=== PATIENT | female | born 1970 | race Caucasian/White ===

== ENCOUNTER 2017-04-15 21:48 | Emergency (ER) | payer OTHER ==
[~2017-04-15] VITALS: Ht 167.6 cm; Wt 86.3 kg
[~2017-04-15 21:48] MED LIST: ASPI81TA21 PO; BUSP15TA70 PO; CLON1TAB3 PO; EFFSR150 PO; PARO1TAB29 PO
[2017-04-15 22:00] VITALS: TEMP 36.9; Ht 167.6 cm; Wt 86.3 kg
[2017-04-15 22:22] VITALS: O2SAT 98
[2017-04-15] MEDS ORDERED: ESCI1TAB10 PO (22:39)
[2017-04-15 22:42] LABS: HEMATOCRIT 44.7 % (37-47); MEAN CELL VOLUME 86.3 fL (80-100); MEAN CORPUSCULAR HEMOGLOBIN 30.7 pg (25-34); MEAN CORPUSCULAR HGB CONC 35.6 g/dl (32-36); MEAN PLATELET VOLUME 11.5 fL (7.4-10.4); PLATELET COUNT 272 K/uL (130-400); RED BLOOD COUNT 5.18 M/uL (4.2-5.4)
--- NOTE | 2017-04-15 22:49 | DIAGNOSTIC IMAGING REPORT ---
CHEST ONE VIEW PORTABLE CLINICAL HISTORY: chest tightness dyspnea COMPARISON STUDY: 09/09/2013 FINDINGS: Mild chronic bibasilar interstitial change. No evidence for cardiac enlargement. Mid and upper lungs are clear. IMPRESSION: Chronic change. No acute process. The above report was generated using voice recognition software. It may contain grammatical, syntax or spelling errors. Electronically signed by: Arturo Maldonado M.D. 04/15/2017 10:47 PM Dictated Date/Time: 04/15/2017 10:47 PM
[2017-04-15 22:51] LABS: BUN/CREATININE RATIO 10.9 (10-20); CALCIUM 9.4 mg/dl (8.5-10.1); CREATININE 0.82 mg/dl (0.60-1.20); POTASSIUM 4.1 mmol/L (3.5-5.1)
[2017-04-15 22:53] LABS: PARTIAL THROMBOPLASTIN RATIO 1.1; PROTHROMBIN TIME (PATIENT) 10.7 SECONDS (9.0-12.0)
[2017-04-15 22:56] LABS: ALB/GLOB RATIO 0.9 (0.9-2); CKMB/CK RATIO 0.8 (0-3.0)
[2017-04-15] MEDS ORDERED: SODIUM CHLORIDE 0.9% 1000ML 1,000 ML IV STA (23:22)
--- NOTE | 2017-04-15 23:28 | EMERGENCY ROOM VISIT NOTE ---
History Report prepared by Diana: Rojas Santos Under the Supervision of: Dr. Evette Alonzo D.O. First contact with patient: 23:12 Chief Complaint: HYPERTENSION Stated Complaint: HIGH BLOOD PRESSURE, HEADACHE, NAUSEA History of Present Illness The patient is a 47 year old female who presents to the Emergency Room with complaints of persistent fatigue that began four days prior to arrival. The patient also complains of intermittent chest pains. She describes the chest pain as a "pressure" and notes that the pains radiate into the left arm. Her pain is improved by sitting down and trying to relax. She does admit to a history of anxiety. The patient has also been experiencing intermittent headaches and blurry vision. She describes her blurry vision as difficulty focusing on the television. She has also been experiencing nausea and increasing urinary frequency. She has no history of high blood pressure, but has noticed that he blood pressure has been elevated over the past four days. The patient is a frequent smoker. She is currently on depression and anxiety medication, as well as a baby Aspirin as a blood thinner. The patient denies fevers, shortness of breath, vomiting, diarrhea, pain with urination, and melena. Source of History: patient Onset: 4 days SOLUTIONS ARCHITECT Position: other (Global) Quality: other (Fatigue) Timing: other (Persistent) Modifying Factors (Relieving): rest Associated Symptoms: + headache, + chest pain, + nausea, + urinary symptoms , No vomiting Review of Systems See HPI for pertinent positives & negatives. A total of 10 systems reviewed and were otherwise negative. Past Medical & Surgical Surgical Problems: (1) H/O section (2) H/O knee surgery (3) H/O tubal ligation Family History Heart disease Hypertension Social History Smoking Status: Current Every Day Smoker Marital Status: in relationship Housing Status: lives with significant other Occupation Status: unemployed Current/Historical Medications Scheduled Amlodipine Besylate (Norvasc), 1 TAB PO DAILY Aspirin Enteric Coated (Ecotrin Or Generic), 81 MG PO DAILY Buspirone Hcl (Buspar), 15 MG PO QAM Clonidine (Catapres-Tts), 1 PATCH TD WK Escitalopram Oxalate (Lexapro), 20 MG PO DAILY Allergies Coded Allergies: Catnip (Verified Allergy, Intermediate, HIVES, 04/16/17) [place] Oil (Verified Allergy, Intermediate, ORANGE PEEL-RASH, 04/16/17) Physical Exam Vital Signs Date Time Temp Pulse Resp B/P (MAP) Pulse Ox O2 Delivery O2 Flow Rate FiO2 04/16/17 02:32 81 18 167/108 95 Room Air 04/16/17 02:11 78 04/16/17 02:01 80 12 177/99 95 Room Air 04/16/17 01:45 75 18 167/93 95 Room Air 04/16/17 01:16 77 16 162/109 95 Room Air 04/16/17 00:36 79 16 164/99 96 Room Air 04/16/17 00:06 79 16 152/102 97 Room Air 04/15/17 23:36 71 20 191/104 95 Room Air 04/15/17 22:48 72 12 93 04/15/17 22:39 76 04/15/17 22:30 166/97 04/15/17 22:24 98 Room Air 04/15/17 22:22 98 Room Air 04/15/17 22:21 144/99 04/15/17 22:00 36.9 82 20 184/114 92 Room Air Physical Exam GENERAL: alert, well appearing, well nourished, no distress, non-toxic EYE EXAM: normal conjunctiva, PERRL and EOM's grossly intact OROPHARYNX: no exudate, no erythema, lips, buccal mucosa, and tongue normal and mucous membranes are dry. NECK: supple, no nuchal rigidity, no adenopathy, non-tender LUNGS: Clear to auscultation. Normal chest wall mechanics HEART: no murmurs, S1 normal and S2 normal ABDOMEN: abdomen soft, non-tender, normo-active bowel sounds, no masses, no rebound or guarding. BACK: Back is symmetrical on inspection and there is no deformity, no midline tenderness, no CVA tenderness. SKIN: no rashes and no bruising UPPER EXTREMITIES: upper extremities are grossly normal. LOWER EXTREMITIES: No pitting edema. NEURO EXAM: Normal sensorium, cranial nerves II-XII intact, normal speech, no weakness of arms, no weakness of legs. Medical Decision & Procedures ER Provider Diagnostic Interpretation: Radiology results have been interpreted by the radiologist and reviewed by me. CHEST ONE VIEW PORTABLE CLINICAL HISTORY: chest tightness dyspnea COMPARISON STUDY: 09/09/2013 FINDINGS: Mild chronic bibasilar interstitial change. No evidence for cardiac enlargement. Mid and upper lungs are clear. IMPRESSION: Chronic change. No acute process. The above report was generated using voice recognition software. It may contain grammatical, syntax or spelling errors. Electronically signed by: Arturo Maldonado M.D. 04/15/2017 10:47 PM Dictated Date/Time: 04/15/2017 10:[address] HEAD: No intracranial hemorrhage or mass effect. Radiologist: Ernie Ramirez M.D. Laboratory Results 04/15/17 22:20 04/15/17 22:20 Test 04/15/17 22:20 04/15/17 22:27 04/15/17 23:32 04/16/17 01:30 Red Blood Count 5.18 M/uL (4.2-5.4) Mean Corpuscular Volume 86.3 fL (80-100) Mean Corpuscular Hemoglobin 30.7 pg (25-34) Mean Corpuscular Hemoglobin Concent 35.6 g/dl (32-36) RDW Standard Deviation 41.6 fL (36.4-46.3) RDW Coefficient of Variation 13.1 % (11.5-14.5) Mean Platelet Volume 11.5 fL (7.4-10.4) Prothrombin Time 10.7 SECONDS (9.0-12.0) Prothromb Time International Ratio 1.0 (0.9-1.1) Activated Partial Thromboplast Time 28.1 SECONDS (21.0-31.0) Partial Thromboplastin Ratio 1.1 Anion Gap 6.0 mmol/L (3-11) Est Creatinine Clear Calc Drug Dose 91.8 ml/min Estimated GFR () 97.4 Estimated GFR (Non- 84.0 BUN/Creatinine Ratio 10.9 (10-20) Calcium Level 9.4 mg/dl (8.5-10.1) Total Bilirubin 0.4 mg/dl (0.2-1) Aspartate Amino Transf (AST/SGOT) 21 U/L (15-37) Alanine Aminotransferase (ALT/SGPT) 35 U/L (12-78) Alkaline Phosphatase 94 U/L (45-117) Total Creatine Kinase 143 U/L (26-192) Creatine Kinase MB 1.2 ng/ml (0.5-3.6) Creatine Kinase MB Ratio 0.8 (0-3.0) Total Protein 8.0 gm/dl (6.4-8.2) Albumin 3.9 gm/dl (3.4-5.0) Globulin 4.1 gm/dl (2.5-4.0) Albumin/Globulin Ratio 0.9 (0.9-2) Bedside Troponin I < 0.030 ng/ml (0-0.045) Urine Color YELLOW Urine Appearance CLEAR (CLEAR) Urine pH 6.5 (4.5-7.5) Urine Specific [place] 1.009 (1.000-1.030) Urine Protein NEG (NEG) Urine Glucose (UA) NEG (NEG) Urine Ketones NEG (NEG) Urine Occult Blood NEG (NEG) Urine Nitrite NEG (NEG) Urine Bilirubin NEG (NEG) Urine Urobilinogen NEG (NEG) Urine Leukocyte Esterase NEG (NEG) Troponin I < 0.015 ng/ml (0-0.045) Laboratory results per my review. Medications Administered Medications (Trade) Dose Ordered Sig/Reji Route Start Time Stop Time Status Last Admin Dose Admin Amlodipine Besylate (Norvasc Tab) 5 mg NOW ONCE PO 04/15/17 23:30 04/15/17 23:31 DC 04/15/17 23:34 5 MG Sodium Chloride 1,000 ml @ 999 mls/hr Q1H1M STAT IV 04/15/17 23:22 04/16/17 00:22 DC 04/15/17 23:36 999 MLS/HR Ketorolac Tromethamine (Toradol Inj) 15 mg NOW STAT IV 04/16/17 00:49 04/16/17 00:51 DC 04/16/17 01:07 15 MG ECG Indication: chest pain Rate (beats per minute): 66 Rhythm: normal sinus Findings: no acute ischemic change, no ectopy, other (Normal axis, normal intervals) ED Course 2314: The patient was evaluated in room C8. A complete history and physical exam was performed. 2322: Ordered Sodium Chloride 1000 mL @ 999 mL/hr IV. 2330: Ordered Amlodipine Besylate 5 mg PO. 0044: I reevaluated the patient at this time. Her headache has improved but the chest pain is still present. 0049: Ordered Toradol 15 mg IV. 0228: Upon reevaluation, the patient is feeling better. I discussed the findings and the treatment plan with the patient. She verbalizes agreement and understanding. The patient was discharged home. Medical Decision Differential diagnoses includes but is not limited to acute coronary syndrome, myocardial infarction, pericarditis, pulmonary embolus, aortic dissection, pneumonia, pneumothorax, musculoskeletal, shingles, esophageal. HEART score: 2 Pt risks include smoking, likely underlying HTN. Discussed with pt tobacco cessation, f/u with PCP regarding htn. Given symptoms, pt started on meds here and BP improved slightly. Discussed concerning levels of htn and how often to check at home. I do feel there is some underlying component of anxiety. No sx during exertion. WU and CP not concurrent and not associated with exertion. Neuro exam at bedside otw normal and nonfocal. Sx improved with meds in the ER. Doubt vascular etiology including dissection/aaa. Doubt occult infectious etiology, doubt tamponade, effusion, pneumothorax. No evidence of hypertensive emergency. Medication Reconcilliation Current Medication List: was personally reviewed by me Blood Pressure Screening Patient's blood pressure: Elevated blood pressure Blood pressure disposition: Referred to PCP Impression Primary Impression: Hypertension Additional Impressions: Headache Chest pain Tobacco abuse Anxiety Scribe Attestation The scribe's documentation has been prepared under my direction and personally reviewed by me in its entirety. I confirm that the note above accurately reflects all work, treatment, procedures, and medical decision making performed by me. Departure Information Dispostion Home / Self-Care Prescriptions Amlodipine Besylate (NORVASC) 5 Mg Tab 1 TAB PO DAILY for 30 Days, #30 TAB Prov: Evette Alonzo DO 04/16/17 Referrals No Doctor, Assigned (PCP) Patient Instructions My [facility] Additional Instructions Please do not check your blood pressure more than once a day. Please consider quitting smoking. Please take the blood pressure medication as prescribed. Please drink more water. Please follow up with your family doctor to recheck your blood pressure and discuss treatment. If you develop any recurrent headaches, recurrent chest pain, vision changes, dizziness, vomiting, numbness or tingling, or you have any other new concerns, please return the emergency room. Problem Qualifiers Primary Impression: Hypertension Hypertension type: essential hypertension Qualified Codes: I10 - Essential ( primary) hypertension Additional Impressions: Headache Headache type: unspecified Headache chronicity pattern: episodic headache Intractability: not intractable Qualified Codes: R51 - Headache Chest pain Chest pain type: unspecified Qualified Codes: R07.9 - Chest pain, unspecified
[2017-04-15] MEDS ORDERED: AMLODIPINE BESYLATE 5 MG TAB PO ONE (23:30)
[2017-04-15 23:48] LABS: MANUAL MICROSCOPIC REQUIRED? NO; REVIEW REQ? NO; URINE APPEARANCE CLEAR (CLEAR); URINE BILIRUBIN NEG (NEG); URINE COLOR YELLOW; URINE NITRITE NEG (NEG); URINE PH 6.5 (4.5-7.5); URINE SPECIFIC GRAVITY 1.009 (1.000-1.030); UROBILINOGEN NEG (NEG); ZZUR CULT IF INDIC CLEAN CATCH NO
[2017-04-16] MEDS ORDERED: KETOROLAC TROMETHAMINE 30 MG/ML VIAL IV STA (00:49)
[2017-04-16 02:32] VITALS: BP 167/108; PULSE 81; O2SAT 95
[2017-04-16] MEDS ORDERED: AMLO5TAB2 PO (02:37)
--- NOTE | 2017-04-16 06:40 | DIAGNOSTIC IMAGING REPORT ---
CT HEAD WITHOUT CONTRAST (CT) CLINICAL HISTORY: Hypertension, headache, visual changes. COMPARISON STUDY: No previous studies for comparison. TECHNIQUE: Axial CT of the brain is performed from the vertex to the skull base. IV contrast was not administered for this examination. A dose lowering technique was utilized adhering to the principles of ALARA. CT DOSE: 537.48 mGy.cm FINDINGS: No intra or extra-axial mass lesions are visualized. There is no CT evidence of acute cortical infarction. There is no evidence of midline shift. There is no acute hemorrhage. No calvarial fractures are visualized. There is no evidence of pathologic ventricular dilatation. There is no evidence of acute sinusitis IMPRESSION: No acute intracranial findings Electronically signed by: Gene Valera M.D. 04/16/2017 6:38 AM Dictated Date/Time: 04/16/2017 6:38 AM
[2017-04-16] MEDS ORDERED: CLON0.1D7 TD (20:03)
== END 2017-04-16 02:46 | disposition home or self-care (01) ==
LOC: C.EDB 21:49 → C.EDC 04-16 02:46
DX: I10 Essential (primary) hypertension (principal); R51 Headache; R07.9 Chest pain, unspecified; F41.9 Anxiety disorder, unspecified; F17.210 Nicotine dependence, cigarettes, uncomplicated; F32.9 Major depressive disorder, single episode, unspecified; Z79.82 Long term (current) use of aspirin; Z98.51 Tubal ligation status; Z82.49 Family history of ischemic heart disease and other diseases of the circulatory system

== ENCOUNTER 2017-04-16 18:14 | Emergency (ER) | payer OTHER ==
[~2017-04-16] VITALS: Ht 167.6 cm; Wt 86.5 kg
[~2017-04-16 18:14] MED LIST changes: +AMLO5TAB2 PO; -EFFSR150 PO; +ESCI1TAB10 PO; -PARO1TAB29 PO
[2017-04-16 18:18] VITALS: Ht 167.6 cm; Wt 86.5 kg
[2017-04-16] MEDS ORDERED: LISINOPRIL 10 MG TAB PO STA (18:32)
--- NOTE | 2017-04-16 18:32 | EMERGENCY ROOM VISIT NOTE ---
History Report prepared by Diana: Reina Pandey Under the Supervision of: Dr. Victorino Banuelos M.D. First contact with patient: 18:22 Chief Complaint: MENTAL HEALTH EVALUATION Stated Complaint: ANXIETY,BLOOD PRESSURE History of Present Illness The patient is a 47 year old female who presents to the Emergency Room with complaints of constant anxiety beginning yesterday. The patient states that she was seen here last night in the ED and had high blood pressure. She reports that she is on blood pressure her medication and took it this morning but has been feeling extremely anxious since last night. She notes that she is afraid that she is going to and her high blood pressure makes her very anxious. The patient states that she has had anxiety for 25 years and it has been since yesterday when she discovered her blood pressure was high. She complains of chest pain, shakiness, and racing thoughts. She denies anything making her chest pain worse. Pt denies any suicidal and homicidal ideation. Source of History: patient Onset: yesterday Position: other Quality: other (anxiety) Timing: constant Modifying Factors (Worsening): other (high blood pressure) Associated Symptoms: + chest pain Note: She complains of shakiness and racing thoughts. Denies suicidal ideation and homicidal ideation. Review of Systems See HPI for pertinent positives & negatives. A total of 10 systems reviewed and were otherwise negative. Past Medical & Surgical Surgical Problems: (1) H/O section (2) H/O knee surgery (3) H/O tubal ligation Family History Heart disease Hypertension Social History Smoking Status: Current Every Day Smoker Marital Status: in relationship Housing Status: lives with significant other Occupation Status: unemployed Current/Historical Medications Scheduled Amlodipine Besylate (Norvasc), 1 TAB PO DAILY Aspirin Enteric Coated (Ecotrin Or Generic), 81 MG PO DAILY Buspirone Hcl (Buspar), 15 MG PO QAM Clonidine (Catapres-Tts), 1 PATCH TD WK Escitalopram Oxalate (Lexapro), 20 MG PO DAILY Allergies Coded Allergies: Catnip (Verified Allergy, Intermediate, HIVES, 04/16/17) [place] Oil (Verified Allergy, Intermediate, ORANGE PEEL-RASH, 04/16/17) Physical Exam Vital Signs Date Time Temp Pulse Resp B/P (MAP) Pulse Ox O2 Delivery O2 Flow Rate FiO2 04/16/17 20:31 36.9 90 16 129/89 95 04/16/17 20:11 129/89 04/16/17 20:09 90 16 95 04/16/17 20:04 81 19 95 04/16/17 20:01 165/80 04/16/17 19:59 92 13 95 04/16/17 19:54 85 16 94 04/16/17 19:49 92 31 94 04/16/17 19:44 96 12 96 04/16/17 19:39 103 22 96 04/16/17 19:34 84 04/16/17 19:34 84 17 93 04/16/17 19:30 146/99 04/16/17 19:06 96 Room Air 04/16/17 19:05 83 20 140/86 92 Room Air 04/16/17 18:18 36.9 108 20 163/104 97 Room Air Physical Exam GENERAL: Patient is a healthy-appearing well-nourished female HEAD: Normocephalic atraumatic EYES: Ocular movements intact pupils equal and react to light OROPHARYNX mucous membranes are moist no exudates present no erythema or edema present NECK: Supple no nuchal rigidity CHEST: Good equal expansion LUNGS: Clear and equal to auscultation CARDIAC: Normal S1 and S2 ABDOMEN: Soft nontender no guarding BACK: No CVA tenderness EXTREMITIES: No pain upon palpation normal muscle strength in all groups no clubbing cyanosis or edema NEURO: Patient is following commands and answering questions appropriately. Alert and oriented x3 Cranial Nerves 2-12 grossly intact PSYCH: Anxious appearing. Denies suicidal and homicidal ideation. Medical Decision & Procedures ER Provider Diagnostic Interpretation: X-ray results as stated below per interpretation by me and the radiologist: CHEST ONE VIEW PORTABLE FINDINGS: The bones soft tissues and hemidiaphragms are normal. The cardiomediastinal silhouette is normal. The lungs are clear. The pulmonary vasculature is normal. Mild chronic interstitial change left base IMPRESSION: No acute process. Chronic changes as noted. The above report was generated using voice recognition software. It may contain grammatical, syntax or spelling errors. Electronically signed by: Arturo Maldonado M.D. 04/16/2017 8:05 PM Dictated Date/Time: 04/16/2017 8:05 PM Laboratory Results 04/16/17 18:55 Red Blood Count 4.91, Mean Corpuscular Volume 87.0, Mean Corpuscular Hemoglobin 29.9, Mean Corpuscular Hemoglobin Concent 34.4, Mean Platelet Volume 11.3, Neutrophils (%) (Auto) 64.6, Lymphocytes (%) (Auto) 30.0, Monocytes (%) (Auto) 4.4, Eosinophils (%) (Auto) 0.4, Basophils (%) (Auto) 0.3, Neutrophils # (Auto) 7.21, Lymphocytes # (Auto) 3.35, Monocytes # (Auto) 0.49, Eosinophils # (Auto) 0.05, Basophils # (Auto) 0.03 04/16/17 18:55 Test 04/16/17 18:50 04/16/17 18:55 04/16/17 19:00 04/16/17 19:02 Urine Color YELLOW Urine Appearance CLEAR (CLEAR) Urine pH 6.5 (4.5-7.5) Urine Specific [place] 1.008 (1.000-1.030) Urine Protein NEG (NEG) Urine Glucose (UA) NEG (NEG) Urine Ketones NEG (NEG) Urine Occult Blood NEG (NEG) Urine Nitrite NEG (NEG) Urine Bilirubin NEG (NEG) Urine Urobilinogen NEG (NEG) Urine Leukocyte Esterase NEG (NEG) Urine Opiates Screen NEG (NEG) Urine Methadone, Qualitative NEG (NEG) Urine Barbiturates NEG (NEG) Urine Phencyclidine (PCP) Level NEG (NEG) Ur Amphetamine/Methamphetamine NEG (NEG) MDMA (Ecstasy) Screen NEG (NEG) Urine Benzodiazepines Screen NEG (NEG) Urine Cocaine Metabolite NEG (NEG) Urine Marijuana (THC) NEG (NEG) White Blood Count 11.16 K/uL (4.8-10.8) Red Blood Count 4.91 M/uL (4.2-5.4) Hemoglobin 14.7 g/dL (12.0-16.0) Hematocrit 42.7 % (37-47) Mean Corpuscular Volume 87.0 fL (80-100) Mean Corpuscular Hemoglobin 29.9 pg (25-34) Mean Corpuscular Hemoglobin Concent 34.4 g/dl (32-36) Platelet Count 287 K/uL (130-400) Mean Platelet Volume 11.3 fL (7.4-10.4) Neutrophils (%) (Auto) 64.6 % Lymphocytes (%) (Auto) 30.0 % Monocytes (%) (Auto) 4.4 % Eosinophils (%) (Auto) 0.4 % Basophils (%) (Auto) 0.3 % Neutrophils # (Auto) 7.21 K/uL (1.4-6.5) Lymphocytes # (Auto) 3.35 K/uL (1.2-3.4) Monocytes # (Auto) 0.49 K/uL (0.11-0.59) Eosinophils # (Auto) 0.05 K/uL (0-0.5) Basophils # (Auto) 0.03 K/uL (0-0.2) RDW Standard Deviation 41.9 fL (36.4-46.3) RDW Coefficient of Variation 13.1 % (11.5-14.5) Immature Granulocyte % (Auto) 0.3 % Immature Granulocyte # (Auto) 0.03 K/uL (0.00-0.02) Est Creatinine Clear Calc Drug Dose 103.2 ml/min Estimated GFR () 112.1 Estimated GFR (Non- 96.7 BUN/Creatinine Ratio 11.7 (10-20) Calcium Level 8.7 mg/dl (8.5-10.1) Total Bilirubin 0.4 mg/dl (0.2-1) Direct Bilirubin < 0.1 mg/dl (0-0.2) Aspartate Amino Transf (AST/SGOT) 17 U/L (15-37) Alanine Aminotransferase (ALT/SGPT) 31 U/L (12-78) Alkaline Phosphatase 88 U/L (45-117) Total Creatine Kinase 175 U/L (26-192) Creatine Kinase MB 1.5 ng/ml (0.5-3.6) Creatine Kinase MB Ratio 0.9 (0-3.0) Troponin I < 0.015 ng/ml (0-0.045) Total Protein 7.4 gm/dl (6.4-8.2) Albumin 3.7 gm/dl (3.4-5.0) Lipase 126 U/L (73-393) Thyroid Stimulating Hormone (TSH) 0.671 uIu/ml (0.300-4.500) Ethyl Alcohol mg/dL < 3.0 mg/dl (0-3) Bedside D-Dimer 346 ng/mlFEU (0-450) Bedside Hemoglobin 14.6 g/dl (12.0-16.0) Bedside Hematocrit 43 % (37-47) Bedside Sodium 143 mEq/L (135-144) Bedside Potassium 3.7 mEq/L (3.3-5.0) Bedside Chloride 105 mEq/L (101-112) Bedside Total CO2 26 mEq/l (24-31) Anion Gap 17.0 mmol/L (16-25) Bedside Blood Urea Nitrogen 7 mg/dl (7-18) Bedside Creatinine 0.7 mg/dl (0.6-1.3) Bedside Glucose (other) 101 mg/dl (70-99) Bedside Ionized Calcium ([place]) 1.18 mmol/l (1.12-1.32) Labs reviewed by ED physician. Medications Administered Medications (Trade) Dose Ordered Sig/Reji Route Start Time Stop Time Status Last Admin Dose Admin Lisinopril (Zestril Tab) 10 mg NOW STAT PO 04/16/17 18:32 04/16/17 18:33 DC 04/16/17 19:01 10 MG Nicotine (Nicoderm Cq 21MG Patch) 1 patch NOW STAT TD 04/16/17 18:33 04/16/17 18:34 DC 04/16/17 19:14 1 PATCH Clonidine HCl ([id number]-0 0.2mg/24hr Patch) 1 patch NOW STAT TD 04/16/17 19:19 04/16/17 19:21 DC 04/16/17 20:13 1 PATCH ECG Indication: chest pain Rate (beats per minute): 84 Rhythm: normal sinus Findings: no acute ischemic change, no ectopy ED Course 1821: Past medical records reviewed. The patient was evaluated in room A7. A complete history and physical examination was performed. 1831: Lisinopril 10mg PO, Nicotine 1 patch TD, Nicotine Polacrilex 1 piece MT. 1918: Clonidine HCl 1 patch TD. 2000: I reevaluated and updated the patient. She has a follow up appointment with her PCP tomorrow. 2014: Upon reexamination the patient is doing well. I discussed results and treatment plan with the patient. She verbalizes agreement and understanding. The patient is ready for discharge. Medical Decision Differential diagnosis: Etiologies such as cardiac ischemia, aortic dissection, pulmonary embolism, pneumonia, pneumothorax, musculoskeletal, infections, pericarditis, myocarditis , esophageal rupture, gastrointestinal, as well as others were entertained. This is a 47-year-old female who presents for the second time in 2 days over concerns about her anxiety as well as her blood pressure. I believe that the patient is anxious about her blood pressure and therefore will place her on clonidine patch which will a very help both the anxiety as well as the blood pressure. Repeat examination revealed much improvement the patient's symptoms. The patient denies being suicidal or homicidal however I believe is well enough to be discharged home for follow-up with her PCP. She does have an appointment in the morning. She was told to return if her symptoms became worse. Both patient and case management were in agreement with the treatment plan. Medication Reconcilliation Current Medication List: was personally reviewed by me Blood Pressure Screening Patient's blood pressure: Elevated blood pressure Blood pressure disposition: Referred to PCP Impression Primary Impression: Hypertension Additional Impression: Anxiety Scribe Attestation The scribe's documentation has been prepared under my direction and personally reviewed by me in its entirety. I confirm that the note above accurately reflects all work, treatment, procedures, and medical decision making performed by me. Departure Information Dispostion Home / Self-Care Prescriptions Clonidine (Catapres-Tts) 0.1 Mg/24 Hr Dis 1 PATCH TD WK, #3 PATCH Prov: Victorino Banuelos MD 04/16/17 Referrals Kamryn Sheriff M.D. (PCP) Forms HOME CARE DOCUMENTATION FORM, IMPORTANT VISIT INFORMATION Patient Instructions Clonidine skin patches, Hypertension Control, Hypertension Dc, My [facility] Additional Instructions Follow up with Dr Germain's office within one week No Strenuous activity until follow up Keep appointments as previously scheduled You were found to have an elevated blood pressure today (>120 sytolic or >90 diastolic). Per medicare guidelines, you need to follow up with this blood pressure screening with your Primary Care Physician (PCP). For a new PCP call [phone]. You have been examined and treated today on an emergency basis only. This is not a substitute for, or an effort to provide, complete comprehensive medical care. It is impossible to recognize and treat all injuries or illnesses in a single emergency department visit. It is therefore important that you follow up closely with Dr Sheriff. Call as soon as possible for an appointment. Thank you for your time and consideration. I look forward to speaking with you again soon. Please don't hesitate to call us if you have any questions. Problem Qualifiers Primary Impression: Hypertension Hypertension type: unspecified Qualified Codes: I10 - Essential (primary) hypertension
[2017-04-16] MEDS ORDERED: NICOTINE 21 MG/24 HR TDSY TD STA (18:33)
[2017-04-16] MEDS ORDERED: NICOTINE POLACRILEX 2 MG GUM MT STA (18:34)
[2017-04-16 19:05] LABS: URINE APPEARANCE CLEAR (CLEAR); URINE BILIRUBIN NEG (NEG); URINE COLOR YELLOW; URINE NITRITE NEG (NEG); URINE PH 6.5 (4.5-7.5); URINE SPECIFIC GRAVITY 1.008 (1.000-1.030); UROBILINOGEN NEG (NEG); ZZUR CULT IF INDIC CLEAN CATCH NO
[2017-04-16 19:06] VITALS: O2SAT 96
[2017-04-16 19:08] LABS: MANUAL MICROSCOPIC REQUIRED? NO; REVIEW REQ? NO
[2017-04-16 19:11] LABS: BASO % 0.3 %; BASO ABS # 0.03 K/uL (0-0.2); COMPLETE YES; EOS % 0.4 %; HEMATOCRIT 42.7 % (37-47); IG% 0.3 %; LYMPH ABS # 3.35 K/uL (1.2-3.4); MEAN CORPUSCULAR HEMOGLOBIN 29.9 pg (25-34); MEAN CORPUSCULAR HGB CONC 34.4 g/dl (32-36); MEAN PLATELET VOLUME 11.3 fL (7.4-10.4); MONO % 4.4 %; NEUT % 64.6 %; PLATELET COUNT 287 K/uL (130-400); RED BLOOD COUNT 4.91 M/uL (4.2-5.4); WHITE BLOOD COUNT 11.16 K/uL (4.8-10.8)
[2017-04-16 19:15] LABS: ISTAT CREATININE 0.7 mg/dl (0.6-1.3); ISTAT HEMOGLOBIN 14.6 g/dl (12.0-16.0); ISTAT IONIZED CALCIUM 1.18 mmol/l (1.12-1.32)
[2017-04-16] MEDS ORDERED: CLONIDINE HCL 0.2 MG/24 HR TRANSDERM SYS TD STA (19:19)
[2017-04-16 19:28] LABS: BENZODIAZEPINE, URINE NEG (NEG); COCAINE,URINE NEG (NEG); PHENCYCLIDINE, URINE NEG (NEG)
[2017-04-16 19:38] LABS: ALT/SGPT 31 U/L (12-78); AST/SGOT 17 U/L (15-37); BLOOD UREA NITROGEN 9 mg/dl (7-18); BUN/CREATININE RATIO 11.7 (10-20); CALCIUM 8.7 mg/dl (8.5-10.1); CARBON DIOXIDE 26 mmol/L (21-32); CHLORIDE 109 mmol/L (98-107); CREATININE 0.73 mg/dl (0.60-1.20); GLUCOSE 96 mg/dl (70-99); POTASSIUM 3.7 mmol/L (3.5-5.1); SODIUM 142 mmol/L (136-145)
[2017-04-16 19:48] LABS: ALKALINE PHOSPHATASE 88 U/L (45-117); CKMB/CK RATIO 0.9 (0-3.0); THYROID STIMULATING HORMONE 0.671 uIu/ml (0.300-4.500)
[2017-04-16] MEDS ORDERED: CLON0.1D7 TD (20:03)
--- NOTE | 2017-04-16 20:07 | DIAGNOSTIC IMAGING REPORT ---
CHEST ONE VIEW PORTABLE CLINICAL HISTORY: CHEST PAIN pain dyspnea. COMPARISON STUDY: No previous studies for comparison. FINDINGS: The bones soft tissues and hemidiaphragms are normal. The cardiomediastinal silhouette is normal. The lungs are clear. The pulmonary vasculature is normal. Mild chronic interstitial change left base IMPRESSION: No acute process. Chronic changes as noted. The above report was generated using voice recognition software. It may contain grammatical, syntax or spelling errors. Electronically signed by: Arturo Maldonado M.D. 04/16/2017 8:05 PM Dictated Date/Time: 04/16/2017 8:05 PM
[2017-04-16 20:31] VITALS: BP 129/89; PULSE 90; TEMP 36.9; O2SAT 95
== END 2017-04-16 20:32 | disposition home or self-care (01) ==
LOC: C.EDB 18:17 → C.EDA 20:32
DX: I10 Essential (primary) hypertension (principal); F41.9 Anxiety disorder, unspecified; Z98.51 Tubal ligation status; Z82.49 Family history of ischemic heart disease and other diseases of the circulatory system; F17.210 Nicotine dependence, cigarettes, uncomplicated; Z79.82 Long term (current) use of aspirin; Z79.899 Other long term (current) drug therapy

== ENCOUNTER → 2017-05-17 | Outpatient (CLI) | payer OTHER ==
[~2017-05-17] MED LIST changes: +CLON0.1D7 TD; -CLON1TAB3 PO
[2017-05-17 12:57] LABS: CHOLESTEROL/HDL RATIO 7.5
== END | disposition home or self-care (01) ==
LOC: C.LABPVFM 10:23
PROVIDERS: ATTEND Nurse Practitioner
DX: I10 Essential (primary) hypertension (principal); E55.9 Vitamin D deficiency, unspecified

== ENCOUNTER → 2017-08-13 | Outpatient (CLI) | payer OTHER ==
[2017-08-13 13:08] LABS: BLOOD UREA NITROGEN 12 mg/dl (7-18); CALCIUM 9.7 mg/dl (8.5-10.1); CARBON DIOXIDE 30 mmol/L (21-32); CREATININE 0.74 mg/dl (0.60-1.20); GLUCOSE 103 mg/dl (70-99); POTASSIUM 4.4 mmol/L (3.5-5.1); SODIUM 137 mmol/L (136-145)
== END | disposition home or self-care (01) ==
LOC: C.LABPVFM 10:14
PROVIDERS: ATTEND Nurse Practitioner
DX: I10 Essential (primary) hypertension (principal); E55.9 Vitamin D deficiency, unspecified; R39.9 Unspecified symptoms and signs involving the genitourinary system

== ENCOUNTER 2022-11-23 13:26 | Inpatient (IN) ==
[2022-11-23 15:02] LABS: Basophils # (auto) 0.05 K/uL (0-0.2); Basophils % (auto) 0.4 %; Eosinophils # (auto) 0.01 K/uL (0-0.50); Eosinophils % (auto) 0.1 %; Hemoglobin 15.4 g/dl (12.0-16.0); Immature Granulocytes # (auto) 0.05 K/uL (0.01-0.20); Immature Granulocytes % (auto) 0.4 %; Lymphocytes # (auto) 2.49 K/uL (1.2-3.4); Lymphocytes % (auto) 19.3 %; Mean Corpuscular Hemoglobin 29.2 pg (25.0-34.0); Mean Corpuscular Hgb Conc 34.2 g/dL (32.0-36.0); Mean Corpuscular Volume 85.2 fL (80.0-100.0); Mean Platelet Volume 10.9 fL (9.4-12.4); Monocytes # (auto) 0.58 K/uL (0.11-0.59); Monocytes % (auto) 4.5 %; Neutrophils # (auto) 9.69 K/uL (1.40-6.50); Neutrophils % (auto) 75.3 %; Platelet Count 346 K/uL (130-400); RDW Coefficient of Variation 13.2 % (11.5-14.5); Red Blood Count 5.28 M/uL (4.20-5.40); White Blood Count 12.87 K/ul (4.8-10.8)
[2022-11-23 15:32] LABS: Albumin Level 4.6 gm/dl (3.4-5.0); Bilirubin,Total 0.4 mg/dl (0.2-1.0); Calcium 9.9 mg/dl (8.6-10.3); Potassium 4.3 mmol/L (3.5-5.1)
[2022-11-23 15:35] LABS: Acetaminophen < 3 ug/ml (10-30); Salicylate < 3.0 mg/dl (3.0-30)
[2022-11-23 15:38] LABS: Albumin Globulin Ratio 1.3 (0.9-2); BUN Creatinine Ratio 7.8 (10-20); Creatinine Clr Calc Pharmacy 88.1 ml/min; Est GFR (African American) 101.5 ml/min; Est GFR (Non-African American) 87.5 ml/min; Globulin 3.5 gm/dl (2.5-4.0); Total Protein 8.1 gm/dl (6.0-8.3)
[2022-11-23 15:56] LABS: Appearance Urine Clear (Clear); Bacteria Urine Automated Negative (Negative); Bilirubin Urine Negative (Negative); Blood Urine Negative (Negative); Color Urine Yellow; Epithelial Cell Urine Auto >30 /lpf (0-5); Glucose Urine UA Negative (Negative); Ketones Urine Negative (Negative); Leukocyte Esterase Urine Negative (Negative); Nitrite Urine Negative (Negative); Protein Urine Trace (Negative); RBC Urine Automated 0-4 /hpf (0-4); Specific Gravity Urine 1.006 (1.000-1.030); Urobilinogen Urine Negative (Negative); pH Urine 6.5 (4.5-7.5)
[2022-11-23 16:33] LABS: Amphetamines+Metham, Urine Neg (Neg); Barbiturates, Urine Neg (Neg); Benzodiazepine, Urine Neg (Neg); Cocaine, Urine Neg (Neg); MDMA (Ecstacy), Urine Neg (Neg); Methadone, Urine Neg (Neg); Opiate, Urine Neg (Neg); Phencyclidine, Urine Neg (Neg)
--- NOTE | 2022-11-23 16:43 | Emergency Department Note ---
Impression & Plan Anxiety ED Provider Note CHIEF COMPLAINT: Mental health HISTORY OF PRESENT ILLNESS: This 52-year-old patient with a history of COPD, hypertension anxiety presents to the emergency department stating she "does not know what is wrong." States she is feeling very anxious with frequent palpitat ions, difficulty sleeping and poor eating. This has been an ongoing issue for several years. States she has been admitted to the [facility] at least twice before and does not have an outpatient psychiatrist. She has her medications written for through her PCP. She saw her doctor today and described her symptoms, she was referred to the emergency department. The patient states "you understand I can't go home, right." She states she does not have acute suicidal thoughts and did not overdose on any medications today. She denies any recent illnesses of fever, cough, vomiting or diarrhea. REVIEW OF SYSTEMS: A review of systems was performed with positives and pertinent negatives listed in the history of present illness. 10 systems were reviewed and are otherwise negative. ALLERGIES: see below MEDICATIONS: see below PMH: see below SOCIAL HISTORY: see below DDx: Mood disorder, infection, hypoglycemia, electrolyte abnormalities, cardiac sources, intracerebral event, toxicologic, trauma, neurologic, as well as other pathologies. PHYSICAL EXAM: Vital signs reviewed. General: Well-appearing 52-year-old, in no significant distress. HEENT: No scleral icterus, PERRLA, neck supple. Atraumatic. Cardiovascular: Slightly tachycardic but regular, no extra sounds Pulmonary: Clear to auscultation bilaterally, normal work of breathing. Abdomen: Soft, nontender, nondistended, positive bowel sounds. Musculoskeletal: Atraumatic, no peripheral edema. Psych: Negative SI, negative HI Neurologic: Patient awake alert and oriented x 3, speech is clear Skin: Warm, dry, no rash EMERGENCY DEPARTMENT COURSE/MDM: This patient was evaluated and appeared to be in no significant distress. Patient was medically cleared and referred to the mental health rn case management for further assessment as she desired inpatient hospitalization. Patient did request something for anxiety and was given Ativan 1 mg sublingually. Patient was evaluated by [facility] and accepted onto their service. DISPOSITION: Admission Past Med/Surg History Medical History Encounter for screening for malignant neoplasm of colon Encounter for screening for malignant neoplasm of rectum Surgical History H/O section H/O knee surgery H/O tubal ligation Family History Denies family history of Ovarian cancer Prostate cancer Myocardial infarction Breast cancer Colorectal cancer Social History Smoking Status: Current every day smoker Tobacco Type: Cigarettes Cigarettes Per Day: pack and a 1/2; Second Hand Exposure: Yes; Hx Alcohol Use: No Hx Substance Use: No Preferred Language: [place]i Communication Ability: Effective System Administrator Required: No marital status: Single Current Living Situation: Significant Other current occupational status: disabled How many Children do You have: 2 Feels Safe at Home: Yes Childhood Exposure to Second-Hand Smoke: Yes caffeine: Yes Dental Care, Regularly: No Physical Activity Frequency: 3-4 Times per Week Seatbelt Use: always Sunscreen Use: No Gender Identity: Female Allergies Allergies Allergy/AdvReac Type Severity Reaction Status Date / Time orange Allergy Intermediate ORANGE Verified 11/23/22 12:56 PEEL-RASH Catnip Allergy Intermediate HIVES Uncoded 11/23/22 12:56 Home Meds Home Medications Medication Instructions Recorded Confirmed amlodipine 10 mg tablet 10 mg PO QAM 11/23/22 11/23/22 aspirin 81 mg tablet,delayed 81 mg PO QAM 11/23/22 11/23/22 release cholecalciferol (vitamin D3) 25 25 mcg PO QAM 11/23/22 11/23/22 mcg (1,000 unit) tablet (Vitamin D3) escitalopram oxalate 20 mg tablet 20 mg PO QAM 11/23/22 11/23/22 Previous Rx's Medication Instructions Recorded ipratropium 20 mcg-albuterol 100 See Rx Instructions inhalation QID 06/02/21 mcg/actuation mist for inhalation PRN asthma #4 grams (Combivent Respimat) clonidine HCl 0.1 mg tablet 0.1 mg PO BID #180 tabs 06/15/22 buspirone 15 mg tablet 15 mg PO BID #180 tabs 07/24/22 fluticasone fur. 100 mcg-umeclid 1 inh inhalation DAILY #60 ea 07/24/22 62.5 mcg-vilant 25 mcg inhalat.powder (Trelegy Ellipta) Results & Data (ED) Vital Signs Vital Signs - 24 hr 11/23/22 13:40 11/23/22 18:00 Temperature 36.6 C Temperature Source Oral Pulse Rate 109 H Pulse Rate [Right Finger] 77 Pulse Rhythm [Right Finger] Regular Pulse Strength [Right Finger] Normal Respiratory Rate 19 16 Respiratory Effort / Characteristics Non-Labored Non-Labored Spontaneous Respiratory Depth Normal Blood Pressure 138/89 Blood Pressure [Right Arm] 126/69 Blood Pressure Mean 105 Blood Pressure Mean [Right Arm] 88 Pulse Oximetry 100 95 Oxygen Delivery Method Room Air Room Air Sepsis Recent Fever Within 48 Hours No Sepsis New/Unexplained Change in Mental Status N/A Sepsis Action Taken by Nursing No Action Required Home Medications Current Medication List: was personally reviewed by me Laboratory Data Attestation: I reviewed the patient's lab results. 11/23/22 14:50 11/23/22 14:50 Lab Results 11/23/22 11/23/22 11/23/22 Range/Units 14:19 14:19 14:45 WBC (4.8-10.8) K/ul RBC (4.20-5.40) M/uL Hgb (12.0-16.0) g/dl Hct (37.0-47.0) % MCV (80.0-100.0) fL MCH (25.0-34.0) pg MCHC (32.0-36.0) g/dL RDW Std Deviation (36.4-46.3) fL RDW Coeff of Matt (11.5-14.5) % Plt Count (130-400) K/uL MPV (9.4-12.4) fL Immature Gran % (Auto) % Neut % (Auto) % Lymph % (Auto) % [place] % (Auto) % Eos % (Auto) % Baso % (Auto) % Neut # (Auto) (1.40-6.50) K/uL Lymph # (Auto) (1.2-3.4) K/uL [place] # (Auto) (0.11-0.59) K/uL Eos # (Auto) (0-0.50) K/uL Baso # (Auto) (0-0.2) K/uL Immature Gran # (Auto) (0.01-0.20) K/uL Sodium (136-145) mmol/L Potassium (3.5-5.1) mmol/L Chloride (98-107) mmol/L Carbon Dioxide (21-32) mmol/L Anion Gap (3-11) BUN (6-23) mg/dl Creatinine (0.6-1.2) mg/dl Est Cr Clr Drug Dosing ml/min Est GFR ( Amer) ml/min Est GFR (Non-Af Amer) ml/min BUN/Creatinine Ratio (10-20) Glucose (70-99(Fasting)) mg/dl Calcium (8.6-10.3) mg/dl Total Bilirubin (0.2-1.0) mg/dl AST (13-39) U/L ALT (7-52) U/L Alkaline Phosphatase (34-104) U/L Total Protein (6.0-8.3) gm/dl Albumin (3.4-5.0) gm/dl Globulin (2.5-4.0) gm/dl Albumin/Globulin Ratio (0.9-2) TSH (0.300-4.500) uIu/ml Urine Color Yellow Urine Appearance Clear (Clear) Urine pH 6.5 (4.5-7.5) Ur Specific [place] 1.006 (1.000-1.030) Urine Protein Trace H (Negative) Urine Glucose (UA) Negative (Negative) Urine Ketones Negative (Negative) Urine Blood Negative (Negative) Urine Nitrite Negative (Negative) Urine Bilirubin Negative (Negative) Urine Urobilinogen Negative (Negative) Ur Leukocyte Esterase Negative (Negative) Urine WBC (Auto) 1-5 (0-5) /hpf Urine RBC (Auto) 0-4 (0-4) /hpf U Hyaline Cast (Auto) 1-5 (0-5) /lpf U Epithel Cells (Auto) >30 H (0-5) /lpf Urine Bacteria (Auto) Negative (Negative) Salicylates (3.0-30) mg/dl Urine Opiates Screen Neg (Neg) Ur Methadone, Qual Neg (Neg) Acetaminophen (10-30) ug/ml Urine Barbiturates Neg (Neg) Ur Phencyclidine (PCP) Neg (Neg) U Amphetamin/Meth Scrn Neg (Neg) MDMA (Ecstasy) Screen Neg (Neg) U Benzodiazepines Scrn Neg (Neg) Ur Cocaine Metabolite Neg (Neg) U Marijuana (THC) Screen Neg (Neg) Ethyl Alcohol mg/dL (<10.0) mg/dl SARS-CoV-2, RNA, NAAT NEGATIVE (NEGATIVE) 11/23/22 11/23/22 11/23/22 Range/Units 14:50 14:50 14:50 WBC 12.87 H (4.8-10.8) K/ul RBC 5.28 (4.20-5.40) M/uL Hgb 15.4 (12.0-16.0) g/dl Hct 45.0 (37.0-47.0) % MCV 85.2 (80.0-100.0) fL MCH 29.2 (25.0-34.0) pg MCHC 34.2 (32.0-36.0) g/dL RDW Std Deviation 41.0 (36.4-46.3) fL RDW Coeff of Matt 13.2 (11.5-14.5) % Plt Count 346 (130-400) K/uL MPV 10.9 (9.4-12.4) fL Immature Gran % (Auto) 0.4 % Neut % (Auto) 75.3 % Lymph % (Auto) 19.3 % [place] % (Auto) 4.5 % Eos % (Auto) 0.1 % Baso % (Auto) 0.4 % Neut # (Auto) 9.69 H (1.40-6.50) K/uL Lymph # (Auto) 2.49 (1.2-3.4) K/uL [place] # (Auto) 0.58 (0.11-0.59) K/uL Eos # (Auto) 0.01 (0-0.50) K/uL Baso # (Auto) 0.05 (0-0.2) K/uL Immature Gran # (Auto) 0.05 (0.01-0.20) K/uL Sodium 138 (136-145) mmol/L Potassium 4.3 (3.5-5.1) mmol/L Chloride 107 (98-107) mmol/L Carbon Dioxide 27 (21-32) mmol/L Anion Gap 4 (3-11) BUN 6 (6-23) mg/dl Creatinine 0.77 (0.6-1.2) mg/dl Est Cr Clr Drug Dosing 88.1 ml/min Est GFR ( Amer) 101.5 ml/min Est GFR (Non-Af Amer) 87.5 ml/min BUN/Creatinine Ratio 7.8 L (10-20) Glucose 109 H (70-99(Fasting)) mg/dl Calcium 9.9 (8.6-10.3) mg/dl Total Bilirubin 0.4 (0.2-1.0) mg/dl AST 16 (13-39) U/L ALT 18 (7-52) U/L Alkaline Phosphatase 81 (34-104) U/L Total Protein 8.1 (6.0-8.3) gm/dl Albumin 4.6 (3.4-5.0) gm/dl Globulin 3.5 (2.5-4.0) gm/dl Albumin/Globulin Ratio 1.3 (0.9-2) TSH 0.647 (0.300-4.500) uIu/ml Urine Color Urine Appearance (Clear) Urine pH (4.5-7.5) Ur Specific [place] (1.000-1.030) Urine Protein (Negative) Urine Glucose (UA) (Negative) Urine Ketones (Negative) Urine Blood (Negative) Urine Nitrite (Negative) Urine Bilirubin (Negative) Urine Urobilinogen (Negative) Ur Leukocyte Esterase (Negative) Urine WBC (Auto) (0-5) /hpf Urine RBC (Auto) (0-4) /hpf U Hyaline Cast (Auto) (0-5) /lpf U Epithel Cells (Auto) (0-5) /lpf Urine Bacteria (Auto) (Negative) Salicylates (3.0-30) mg/dl Urine Opiates Screen (Neg) Ur Methadone, Qual (Neg) Acetaminophen (10-30) ug/ml Urine Barbiturates (Neg) Ur Phencyclidine (PCP) (Neg) U Amphetamin/Meth Scrn (Neg) MDMA (Ecstasy) Screen (Neg) U Benzodiazepines Scrn (Neg) Ur Cocaine Metabolite (Neg) U Marijuana (THC) Screen (Neg) Ethyl Alcohol mg/dL (<10.0) mg/dl SARS-CoV-2, RNA, NAAT (NEGATIVE) 11/23/22 11/23/22 Range/Units 14:50 14:50 WBC (4.8-10.8) K/ul RBC (4.20-5.40) M/uL Hgb (12.0-16.0) g/dl Hct (37.0-47.0) % MCV (80.0-100.0) fL MCH (25.0-34.0) pg MCHC (32.0-36.0) g/dL RDW Std Deviation (36.4-46.3) fL RDW Coeff of Matt (11.5-14.5) % Plt Count (130-400) K/uL MPV (9.4-12.4) fL Immature Gran % (Auto) % Neut % (Auto) % Lymph % (Auto) % [place] % (Auto) % Eos % (Auto) % Baso % (Auto) % Neut # (Auto) (1.40-6.50) K/uL Lymph # (Auto) (1.2-3.4) K/uL [place] # (Auto) (0.11-0.59) K/uL Eos # (Auto) (0-0.50) K/uL Baso # (Auto) (0-0.2) K/uL Immature Gran # (Auto) (0.01-0.20) K/uL Sodium (136-145) mmol/L Potassium (3.5-5.1) mmol/L Chloride (98-107) mmol/L Carbon Dioxide (21-32) mmol/L Anion Gap (3-11) BUN (6-23) mg/dl Creatinine (0.6-1.2) mg/dl Est Cr Clr Drug Dosing ml/min Est GFR ( Amer) ml/min Est GFR (Non-Af Amer) ml/min BUN/Creatinine Ratio (10-20) Glucose (70-99(Fasting)) mg/dl Calcium (8.6-10.3) mg/dl Total Bilirubin (0.2-1.0) mg/dl AST (13-39) U/L ALT (7-52) U/L Alkaline Phosphatase (34-104) U/L Total Protein (6.0-8.3) gm/dl Albumin (3.4-5.0) gm/dl Globulin (2.5-4.0) gm/dl Albumin/Globulin Ratio (0.9-2) TSH (0.300-4.500) uIu/ml Urine Color Urine Appearance (Clear) Urine pH (4.5-7.5) Ur Specific [place] (1.000-1.030) Urine Protein (Negative) Urine Glucose (UA) (Negative) Urine Ketones (Negative) Urine Blood (Negative) Urine Nitrite (Negative) Urine Bilirubin (Negative) Urine Urobilinogen (Negative) Ur Leukocyte Esterase (Negative) Urine WBC (Auto) (0-5) /hpf Urine RBC (Auto) (0-4) /hpf U Hyaline Cast (Auto) (0-5) /lpf U Epithel Cells (Auto) (0-5) /lpf Urine Bacteria (Auto) (Negative) Salicylates < 3.0 L (3.0-30) mg/dl Urine Opiates Screen (Neg) Ur Methadone, Qual (Neg) Acetaminophen < 3 L (10-30) ug/ml Urine Barbiturates (Neg) Ur Phencyclidine (PCP) (Neg) U Amphetamin/Meth Scrn (Neg) MDMA (Ecstasy) Screen (Neg) U Benzodiazepines Scrn (Neg) Ur Cocaine Metabolite (Neg) U Marijuana (THC) Screen (Neg) Ethyl Alcohol mg/dL < 10.0 (<10.0) mg/dl SARS-CoV-2, RNA, NAAT (NEGATIVE) Administered Medications Discontinued Medications Lorazepam (Lorazepam 1 Mg Tab) 1 mg SL NOW STA Stop: 11/23/22 17:37 Last Admin: 11/23/22 17:48 Dose: 1 mg Documented By: AMS Discharge Plan Visit Data Chief Complaint: Mental Health Evaluation Stated Complaint: DEPRESSION ED Provider: Ashley Call Discharge Problem: Anxiety
[2022-11-23] MEDS ORDERED: LORazepam 1 MG TAB SL STA (17:36)
[2022-11-23] MEDS ORDERED: SODIUM CHLORIDE 0.65% NA SOLN 45 ML (OCEAN) PRN (17:58)
[2022-11-23] MEDS ORDERED: ALUMINUM/MAGNESIUM SUSP 30 ML UDC PO PRN (17:58)
[2022-11-23] MEDS ORDERED: BISMUTH SUBSALICYLATE LIQD 236 ML PO PRN (17:58)
[2022-11-23] MEDS ORDERED: hydrOXYzine HCl 25 MG TAB PO PRN ×2 (17:58)
[2022-11-23] MEDS ORDERED: MAGNESIUM HYDROXIDE SUSP 30 ML UDC PO PRN (17:58)
[2022-11-23] MEDS: NICOTINE 21 MG/24 HR TDSY TD SCH (19:39)
[2022-11-23] MEDS: busPIRone 15 MG TAB PO SCH (21:30)
[2022-11-23] MEDS: cloNIDine HCL 0.1 MG TAB PO SCH (21:30)
[2022-11-24] MEDS: busPIRone 15 MG TAB PO SCH ×2 (08:38→21:59)
[2022-11-24] MEDS: NICOTINE 21 MG/24 HR TDSY TD SCH (08:38)
[2022-11-24] MEDS: cloNIDine HCL 0.1 MG TAB PO SCH ×2 (08:39→21:59)
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
[2022-11-24] MEDS: ASPIRIN 81 MG ECTAB PO SCH (15:37)
[2022-11-24] MEDS: amLODIPine BESYLATE 5 MG TAB PO SCH (15:37)
[2022-11-24] MEDS: ESCITALOPRAM OXALATE 20 MG TAB PO SCH (15:37)
[2022-11-24] MEDS: CHOLECALCIFEROL 1,000 UNITS 25 MCG TAB PO SCH (15:37)
[2022-11-24] MEDS: NICOTINE POLACRILEX 2 MG GUM MT PRN ×2 (17:34→20:22)
[2022-11-24] MEDS: ACETAMINOPHEN 325 MG TAB PO PRN (20:22)
[2022-11-24] MEDS: MIRTAZAPINE TAB 15 MG TAB PO SCH (21:59)
[2022-11-25] MEDS: busPIRone 15 MG TAB PO SCH (08:59)
[2022-11-25] MEDS: NICOTINE 21 MG/24 HR TDSY TD SCH (08:59)
[2022-11-25] MEDS: FLUTICASONE FUROATE 100MCG 14 PUFFS/INHALER INH SCH (09:00)
[2022-11-25] MEDS: ASPIRIN 81 MG ECTAB PO SCH (09:00)
[2022-11-25] MEDS: CHOLECALCIFEROL 1,000 UNITS 25 MCG TAB PO SCH (09:00)
[2022-11-25] MEDS: amLODIPine BESYLATE 5 MG TAB PO SCH (09:00)
[2022-11-25] MEDS: ESCITALOPRAM OXALATE 20 MG TAB PO SCH (09:00)
[2022-11-25] MEDS: cloNIDine HCL 0.1 MG TAB PO SCH ×2 (09:00→21:15)
[2022-11-25] MEDS ORDERED: NON-FORMULARY MEDICATION (Fluticasone-Umeclidin-Vilanter [Trelegy Ellipta] 100-62.5-25 mcg INH SCH (09:00)
[2022-11-25] MEDS: UMECLIDINIUM/VILANTEROL 62.5/25MCG 7 PUFFS/INHALER INH SCH (09:01)
[2022-11-25] MEDS ORDERED: GABAPENTIN 100 MG CAP PO ONE (11:30)
--- NOTE | 2022-11-25 14:08 | Psychiatric Progress Note ---
Date of Service November 25, 2022 Impression / Recommendations Impression As per Dr. Cabrera: Jazmín is a 52 year old with a history of depression and anxiety who was admitted for severe anxiety with increasing panic attacks and inability to attend to her ADLs or participate in outpatient level of care and with no current outpatient providers. Diagnostically consistent with CACHORRO with panic attacks and likely major depressive disorder with anxious distress in the setting of worsening illness anxiety disorder following her mother's recent . She is deemed in need of in psychiatric hospitalization for diagnostic clarification, safety and stabilization, medication management and development of further coping skills. imp: ongoing anxiety with tremor (1) Major depressive disorder, recurrent episode with anxious distress: (2) Generalized anxiety disorder with panic attacks: (3) Illness anxiety disorder: Plan 11/25/2022: risks/benefits/alternatives reviewed re: Neurontin to ultimately replace Buspar as may have more immediate effect than mirtazapine. She desires to continue clonidine so mirtazapine a better choice for tremor than propranolol. She tolerated 1st dose of 100 mg Neurontin with limited benefit. Will order 200 mg TID and monitor. 11/24/2022: The patient was [facility] on q15 min checks (behavioral with suicide precautions) for safety. The patient will participate in group, recreational, and milieu therapies and will be offered additional individual and family sessions as clinically appropriate. -Continue escitalopram 20mg daily -Continue clonidine 0.1mg BID -Continue Buspar 15mg BID -Start mirtazapine 15mg HS Inventory Assets Strengths: supportive relationships, willing to get treatment Needs: safety and stabilization, medication adjustment, additional coping skills, increased outpatient services Suicide Risk Level Suicide Risk Level: Low (q15 min observation checks) (denies SI, feels safe in the hospital) Suicide Risk Level Comments: Risk Factors Assessment : Yes Do You Have Access To A Gun?: No Health Problems: Yes Mental Health Diagnoses: Yes Substance Use Disorders: No Previous Attempt: No Family History of Suicide: No Previous Psychiatric Hospitalization: Yes Protective Factors Assessment Employed: No (Disability) Stable Relationships: Yes Supportive Family: Yes Interval History Identifying Information JAZMÍN MIRANDA is a 52-year-old F who currently lives in [place] with her boyfriend, has a history of depression, anxiety and panic attacks, and was admitted on 11/23/22 18:37 on a 201 voluntary commitment for severe anxiety with decreased appetite, sleep and inability to attend to ADLs. Chief Complaint "I just need to get this anxiety under better control". Review of Systems Sleep Information Total Hours of Sleep: 6 Meal Information Percent Meal Consumed - Breakfast: 100 Percent Meal Consumed - Lunch: 100 Percent Meal Consumed - Dinner: 90 Subjective Subjective Patient was seen & assessed and interval progress reviewed with nursing and social work. Social with peers, interacting on unit. c/o tremor related to anxiety and difficulty sleeping despite starting Remeron. Has been on Buspar "forever" and doesn't consistentl;y remember the 2nd dose at home. Physical Exam Psychiatric Orientation: alert and oriented x 3 Apperance: appropriately dressed and appropriately groomed Eye Contact: good eye contact Motor Behavior: + tremor Speech: normal rate/rhythm/volume of speech Affect: + depressed affect and + anxious affect Mood: + depressed mood and + anxious mood Thought Process: goal directed thought process Thought Content: reality based without delusions Suicidal Thoughts: denies suicidal thoughts, denies suicidal plan and denies suicidal intent Homicidal Thoughts: denies homicidal thoughts Hallucinations: no auditory hallucinations and no visual hallucinations Cognition: recent memory grossly intact, remote memory grossly intact, attention grossly intact and language grossly intact Estimated Intelligence: consistent with education level Insight: + limited insight Judgment: + fair judgement Vital Signs (Past 24 Hours) Last Vital Signs Temp 36.6 C 11/25/22 06:38 Pulse 92 H 11/25/22 06:39 Resp 16 11/25/22 06:38 BP 103/66 11/25/22 06:39 Pulse Ox 94 11/23/22 19:01 O2 Del Method Room Air 11/23/22 19:01 Results & Data ([facility]) Current Inpatient Medications Current Inpatient Medications: Current Inpatient Medications Acetaminophen (Acetaminophen 325 Mg Tab) 650 mg PO Q4H PRN PRN Reason: Headache or Minor Fever Stop: 12/23/22 17:57 Last Admin: 11/24/22 20:22 Dose: 650 mg Al Hydrox/Mg Hydrox/Simethicone (Aluminum/Magnesium Susp 30 Ml Udc) 30 ml PO Q4H PRN PRN Reason: GI Upset Stop: 12/23/22 17:57 Amlodipine Besylate (Amlodipine Besylate 5 Mg Tab) 10 mg PO QAM ST[facility] Stop: 12/24/22 14:59 Last Admin: 11/25/22 09:00 Dose: 10 mg Aspirin (Aspirin 81 Mg Ectab) 81 mg PO QAM [facility] Stop: 12/24/22 14:59 Last Admin: 11/25/22 09:00 Dose: 81 mg Bismuth Subsalicylate (Bismuth Subsalicylate Liqd 236 Ml) 15 ml PO PRN PRN PRN Reason: Loose Stool Stop: 12/23/22 17:57 Buspirone HCl (Buspirone 5 Mg Tab) 10 mg PO BID17 [facility] Stop: 12/25/22 16:59 Clonidine HCl (Clonidine Hcl 0.1 Mg Tab) 0.1 mg PO BID [facility] Stop: 12/24/22 20:59 Last Admin: 11/25/22 09:00 Dose: 0.1 mg Escitalopram Oxalate (Escitalopram Oxalate 20 Mg Tab) 20 mg PO QAM [facility] Stop: 12/24/22 15:14 Last Admin: 11/25/22 09:00 Dose: 20 mg Fluticasone Furoate (Fluticasone Furoate 100mcg 14 Puffs/Inhaler) 1 puffs INH DAILY [facility] Stop: 12/25/22 08:59 Last Admin: 11/25/22 09:00 Dose: 1 puffs Gabapentin (Gabapentin 100 Mg Cap) 200 mg PO TID [facility] Stop: 12/25/22 20:59 Hydroxyzine HCl (Hydroxyzine Hcl 25 Mg Tab) 50 mg PO HSZ PRN PRN Reason: Insomnia Stop: 12/23/22 17:57 Hydroxyzine HCl (Hydroxyzine Hcl 25 Mg Tab) 25 mg PO Q4H PRN PRN Reason: Anxiety Stop: 12/23/22 17:57 Magnesium Hydroxide (Magnesium Hydroxide Susp 30 Ml Udc) 30 ml PO DAILY PRN PRN Reason: Constipation Stop: 12/23/22 17:57 Mirtazapine (Mirtazapine Tab 15 Mg Tab) 15 mg PO HS [facility] Stop: 12/24/22 21:59 Last Admin: 11/24/22 21:59 Dose: 15 mg Miscellaneous (Remove Nicoderm Patch) 1 each N/A DAILY@0859 [facility] Stop: 12/23/22 18:58 Last Admin: 11/25/22 09:01 Dose: 1 each Nicotine (Nicotine 21 Mg/24 Hr Tdsy) 21 mg TD QAM [facility] Stop: 12/23/22 18:59 Last Admin: 11/25/22 08:59 Dose: 21 mg Nicotine Polacrilex (Nicotine Polacrilex 2 Mg Gum) 1 piece MT PRN PRN PRN Reason: Nicotine Withdrawal Stop: 12/23/22 18:47 Last Admin: 11/24/22 20:22 Dose: 1 piece Sodium Chloride (Sodium Chloride 0.65% Na Soln 45 Ml ([place])) 1 - 2 sprays NA PRN PRN PRN Reason: Nasal Dryness/Congestion Stop: 12/23/22 17:57 Umeclidinium/Vilanterol (Umeclidinium/Vilanterol 62.5/25mcg 7 Puffs/Inhaler) 1 puffs INH DAILY [facility] Stop: 12/25/22 08:59 Last Admin: 11/25/22 09:01 Dose: 1 puffs Vitamin D (Cholecalciferol 1,000 Units 25 Mcg Tab) 1,000 units PO QAM [facility] Stop: 12/24/22 15:14 Last Admin: 11/25/22 09:00 Dose: 1,000 units Mental Health & Subst Abuse Tx Psychiatrist Date Of Appointment With Psychiatric Provider: KAREN Therapist Name of Therapist: KAREN Bar Tender Name of Bar Tender: KAREN Post Discharge Appointments Primary Care Physician Name Of Family Doctor/PCP: Angie Sutton
[2022-11-25] MEDS: busPIRone 5 MG TAB PO SCH (17:16)
[2022-11-25] MEDS: NICOTINE POLACRILEX 2 MG GUM MT PRN (18:08)
[2022-11-25] MEDS: GABAPENTIN 100 MG CAP PO SCH (21:15)
[2022-11-25] MEDS: MIRTAZAPINE TAB 15 MG TAB PO SCH (21:15)
[2022-11-26] MEDS: ASPIRIN 81 MG ECTAB PO SCH (08:16)
[2022-11-26] MEDS: GABAPENTIN 100 MG CAP PO SCH ×3 (08:16→21:09)
[2022-11-26] MEDS: busPIRone 5 MG TAB PO SCH ×2 (08:16→17:16)
[2022-11-26] MEDS: CHOLECALCIFEROL 1,000 UNITS 25 MCG TAB PO SCH (08:16)
[2022-11-26] MEDS: amLODIPine BESYLATE 5 MG TAB PO SCH (08:16)
[2022-11-26] MEDS: cloNIDine HCL 0.1 MG TAB PO SCH ×2 (08:16→21:09)
[2022-11-26] MEDS: ESCITALOPRAM OXALATE 20 MG TAB PO SCH (08:16)
[2022-11-26] MEDS: FLUTICASONE FUROATE 100MCG 14 PUFFS/INHALER INH SCH (08:17)
[2022-11-26] MEDS: UMECLIDINIUM/VILANTEROL 62.5/25MCG 7 PUFFS/INHALER INH SCH (08:17)
[2022-11-26] MEDS: NICOTINE 21 MG/24 HR TDSY TD SCH (08:18)
--- NOTE | 2022-11-26 11:12 | Psychiatric Progress Note ---
Date of Service November 26, 2022 Impression / Recommendations Impression As per Dr. Cabrera: Jazmín is a 52 year old with a history of depression and anxiety who was admitted for severe anxiety with increasing panic attacks and inability to attend to her ADLs or participate in outpatient level of care and with no current outpatient providers. Diagnostically consistent with CACHORRO with panic attacks and likely major depressive disorder with anxious distress in the setting of worsening illness anxiety disorder following her mother's recent . She is deemed in need of in psychiatric hospitalization for diagnostic clarification, safety and stabilization, medication management and development of further coping skills. imp: improving (1) Major depressive disorder, recurrent episode with anxious distress: (2) Generalized anxiety disorder with panic attacks: (3) Illness anxiety disorder: Plan 11/26/2022: continue Neurontin trial. needs family meeting and safety planning. D/C Buspar. 11/25/2022: risks/benefits/alternatives reviewed re: Neurontin to ultimately replace Buspar as may have more immediate effect than mirtazapine. She desires to continue clonidine so mirtazapine a better choice for tremor than propranolol. She tolerated 1st dose of 100 mg Neurontin with limited benefit. Will order 200 mg TID and monitor. 11/24/2022: The patient was admitted to the [facility] ([facility]) on q15 min checks (behavioral with suicide precautions) for safety. The patient will participate in group, recreational, and milieu therapies and will be offered additional individual and family sessions as clinically appropriate. -Continue escitalopram 20mg daily -Continue clonidine 0.1mg BID -Continue Buspar 15mg BID -Start mirtazapine 15mg HS Inventory Assets Strengths: supportive relationships, willing to get treatment Needs: safety and stabilization, medication adjustment, additional coping skills, increased outpatient services Suicide Risk Level Suicide Risk Level: Low (q15 min observation checks) (denies SI, feels safe in the hospital) Suicide Risk Level Comments: Risk Factors Assessment : Yes Do You Have Access To A Gun?: No Health Problems: Yes Mental Health Diagnoses: Yes Substance Use Disorders: No Previous Attempt: No Family History of Suicide: No Previous Psychiatric Hospitalization: Yes Protective Factors Assessment Employed: No (Disability) Stable Relationships: Yes Supportive Family: Yes Interval History Identifying Information JAZMÍN MIRANDA is a 52-year-old F who currently lives in [place] with her boyfriend, has a history of depression, anxiety and panic attacks, and was admitted on 11/23/22 18:37 on a 201 voluntary commitment for severe anxiety with decreased appetite, sleep and inability to attend to ADLs. Chief Complaint "I feel like a million bucks" Review of Systems Sleep Information Total Hours of Sleep: 7.25 Meal Information Percent Meal Consumed - Breakfast: 100 Percent Meal Consumed - Lunch: 100 Percent Meal Consumed - Dinner: 95 Subjective Subjective Patient was seen & assessed and interval progress reviewed with nursing and social work. Patient notes improvement in mood and tremor is resolved. She remains ambivalent re: aftercare. Physical Exam Psychiatric Orientation: alert and oriented x 3 Apperance: appropriately dressed and appropriately groomed Eye Contact: good eye contact Motor Behavior: no abnormal motor movements Speech: normal rate/rhythm/volume of speech Affect: euthymic affect Mood: no anxious mood Thought Process: goal directed thought process Thought Content: reality based without delusions Suicidal Thoughts: denies suicidal thoughts, denies suicidal plan and denies suicidal intent Homicidal Thoughts: denies homicidal thoughts Hallucinations: no auditory hallucinations and no visual hallucinations Cognition: recent memory grossly intact, remote memory grossly intact, attention grossly intact and language grossly intact Estimated Intelligence: consistent with education level Insight: + fair insight Judgment: + fair judgement Vital Signs (Past 24 Hours) Last Vital Signs Temp 36.8 C 11/26/22 06:43 Pulse 86 11/26/22 06:44 Resp 16 11/26/22 06:43 BP 136/83 11/26/22 06:44 Pulse Ox 94 11/23/22 19:01 O2 Del Method Room Air 11/23/22 19:01 Results & Data ([facility]) Current Inpatient Medications Current Inpatient Medications: Current Inpatient Medications Acetaminophen (Acetaminophen 325 Mg Tab) 650 mg PO Q4H PRN PRN Reason: Headache or Minor Fever Stop: 12/23/22 17:57 Last Admin: 11/24/22 20:22 Dose: 650 mg Al Hydrox/Mg Hydrox/Simethicone (Aluminum/Magnesium Susp 30 Ml Udc) 30 ml PO Q4H PRN PRN Reason: GI Upset Stop: 12/23/22 17:57 Amlodipine Besylate (Amlodipine Besylate 5 Mg Tab) 10 mg PO QAM [facility] Stop: 12/24/22 14:59 Last Admin: 11/26/22 08:16 Dose: 10 mg Aspirin (Aspirin 81 Mg Ectab) 81 mg PO QAM [facility] Stop: 12/24/22 14:59 Last Admin: 11/26/22 08:16 Dose: 81 mg Bismuth Subsalicylate (Bismuth Subsalicylate Liqd 236 Ml) 15 ml PO PRN PRN PRN Reason: Loose Stool Stop: 12/23/22 17:57 Buspirone HCl (Buspirone 5 Mg Tab) 10 mg PO BID17 [facility] Stop: 12/25/22 16:59 Last Admin: 11/26/22 08:16 Dose: 10 mg Clonidine HCl (Clonidine Hcl 0.1 Mg Tab) 0.1 mg PO BID [facility] Stop: 12/24/22 20:59 Last Admin: 11/26/22 08:16 Dose: 0.1 mg Escitalopram Oxalate (Escitalopram Oxalate 20 Mg Tab) 20 mg PO QAM [facility] Stop: 12/24/22 15:14 Last Admin: 11/26/22 08:16 Dose: 20 mg Fluticasone Furoate (Fluticasone Furoate 100mcg 14 Puffs/Inhaler) 1 puffs INH DAILY [facility] Stop: 12/25/22 08:59 Last Admin: 11/26/22 08:17 Dose: 1 puffs Gabapentin (Gabapentin 100 Mg Cap) 200 mg PO TID [facility] Stop: 12/25/22 20:59 Last Admin: 11/26/22 08:16 Dose: 200 mg Hydroxyzine HCl (Hydroxyzine Hcl 25 Mg Tab) 50 mg PO HSZ PRN PRN Reason: Insomnia Stop: 12/23/22 17:57 Hydroxyzine HCl (Hydroxyzine Hcl 25 Mg Tab) 25 mg PO Q4H PRN PRN Reason: Anxiety Stop: 12/23/22 17:57 Magnesium Hydroxide (Magnesium Hydroxide Susp 30 Ml Udc) 30 ml PO DAILY PRN PRN Reason: Constipation Stop: 12/23/22 17:57 Mirtazapine (Mirtazapine Tab 15 Mg Tab) 15 mg PO HS [facility] Stop: 12/24/22 21:59 Last Admin: 11/25/22 21:15 Dose: 15 mg Miscellaneous (Remove Nicoderm Patch) 1 each N/A DAILY@0859 [facility] Stop: 12/23/22 18:58 Last Admin: 04/23/23 08:18 Dose: 1 each Nicotine (Nicotine 21 Mg/24 Hr Tdsy) 21 mg TD QAM [facility] Stop: 12/23/22 18:59 Last Admin: 11/26/22 08:18 Dose: 21 mg Nicotine Polacrilex (Nicotine Polacrilex 2 Mg Gum) 1 piece MT PRN PRN PRN Reason: Nicotine Withdrawal Stop: 12/23/22 18:47 Last Admin: 11/25/22 18:08 Dose: 1 piece Sodium Chloride (Sodium Chloride 0.65% Na Soln 45 Ml ([place])) 1 - 2 sprays NA PRN PRN PRN Reason: Nasal Dryness/Congestion Stop: 12/23/22 17:57 Umeclidinium/Vilanterol (Umeclidinium/Vilanterol 62.5/25mcg 7 Puffs/Inhaler) 1 puffs INH DAILY [facility] Stop: 12/25/22 08:59 Last Admin: 11/26/22 08:17 Dose: 1 puffs Vitamin D (Cholecalciferol 1,000 Units 25 Mcg Tab) 1,000 units PO QAM [facility] Stop: 12/24/22 15:14 Last Admin: 11/26/22 08:16 Dose: 1,000 units Mental Health & Subst Abuse Tx Psychiatrist Date Of Appointment With Psychiatric Provider: KAREN Therapist Name of Therapist: KAREN [employer] Maker Name of [employer] Maker: KAREN Post Discharge Appointments Primary Care Physician Name Of Family Doctor/PCP: Angie Sutton
[2022-11-26] MEDS: NICOTINE POLACRILEX 2 MG GUM MT PRN (16:00)
[2022-11-26] MEDS: MIRTAZAPINE TAB 15 MG TAB PO SCH (21:09)
[2022-11-26] MEDS: ACETAMINOPHEN 325 MG TAB PO PRN (21:38)
[2022-11-27] MEDS: ASPIRIN 81 MG ECTAB PO SCH (08:30)
[2022-11-27] MEDS: cloNIDine HCL 0.1 MG TAB PO SCH (08:30)
[2022-11-27] MEDS: amLODIPine BESYLATE 5 MG TAB PO SCH (08:30)
[2022-11-27] MEDS: CHOLECALCIFEROL 1,000 UNITS 25 MCG TAB PO SCH (08:30)
[2022-11-27] MEDS: UMECLIDINIUM/VILANTEROL 62.5/25MCG 7 PUFFS/INHALER INH SCH (08:31)
[2022-11-27] MEDS: GABAPENTIN 100 MG CAP PO SCH (08:31)
[2022-11-27] MEDS: ESCITALOPRAM OXALATE 20 MG TAB PO SCH (08:31)
[2022-11-27] MEDS: FLUTICASONE FUROATE 100MCG 14 PUFFS/INHALER INH SCH (08:31)
[2022-11-27] MEDS: NICOTINE 21 MG/24 HR TDSY TD SCH (08:31)
[2022-11-27] MEDS ORDERED: busPIRone 5 MG TAB PO SCH (09:00)
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
== END 2022-11-27 10:51 | disposition home or self-care (01) | DRG 885 ==
LOC: ED 13:26 → 3S 18:05 → SUATTDRO 18:37